=== PATIENT | female | born 1950 | race Caucasian/White ===

== ENCOUNTER 2017-05-31 05:01 | Inpatient (IN) ==
[2017-05-31] MEDS ORDERED: ONDANSETRON 4 MG/2 ML VIAL IV STA ×2 (05:34→06:59)
[2017-05-31] MEDS ORDERED: SODIUM CHLORIDE 0.9% 1,000 ML IV STA (05:34)
[2017-05-31] MEDS ORDERED: MORPHINE 2 MG/1 ML SYRINGE IV STA (05:35)
[2017-05-31] MEDS ORDERED: ONDANSETRON 4 MG/2 ML VIAL ONE ×2 (05:43→07:02)
[2017-05-31] MEDS ORDERED: MORPHINE 10 MG/1 ML VIAL ONE (05:44)
[2017-05-31] MEDS ORDERED: PANTOPRAZOLE 40 MG VIAL IV STA (06:09)
[2017-05-31 06:26] LABS: Basophils % 0.6 % (0.0-0.8); Eosinophils # 0.1 10*3/uL (0.0-0.87); Eosinophils % 2.3 % (0.00-10.9); Hematocrit 26.5 VOL% (35.7-47.0); Hemoglobin 9.2 GM/DL (12.0-16.0); Immature Granulocytes % 0.6 %; Immature Granulocytes Absolute 0.02 #; Lymphocytes % 27.6 % (21.3-54.2); Mean Corpuscular HGB Conc 34.7 GM/DL (32-36); Mean Corpuscular Hemoglobin 30 PG (27-34); Mean Corpuscular Volume 86.6 FL (87-102); Mean Platelet Volume 10.4 FL (9.6-12.0); Monocytes # 0.3 10*3/uL (0.11-0.8); Monocytes % 8.3 % (1.7-12.7); Neutrophils # 2.1 10*3/uL (1.4-7.4); Neutrophils % 60.6 % (38.7-73.9); Platelet Count 80 T/CUMM (130-400); Red Blood Count 3.06 MC/CUMM (3.8-5.5); Red Cell Distribution Width 14.6 % (9.3-17.3); White Blood Count 3.5 T/CUMM (4-12)
[2017-05-31] MEDS ORDERED: PANTOPRAZOLE 40 MG VIAL IV ONE (06:28)
[2017-05-31 06:36] LABS: INR 1.3; PT Patient Result 13.3 SECS
[2017-05-31 06:44] LABS: Albumin 3.2 G/DL (3.4-5.0); Bilirubin,Total 2.8 MG/DL (0.2-1.0); Calcium 8.2 MG/DL (8.5-10.1); Osmolality,Calculated 292.8 MOS/KG (273-304); Potassium 3.2 MMOL/L (3.5-5.1); Total Protein 5.4 G/DL (6.4-8.3); Troponin I Only 0.016 NG/ML (0.00-0.045)
[2017-05-31 08:11] LABS: Hypochromasia 1+; Ovalocytes Slight; Platelet Estimate Decreased
[2017-05-31] MEDS: POTASSIUM CHLORIDE 20 MEQ TABLET PO PRN ×4 (11:00→17:23)
[2017-05-31] MEDS: PANTOPRAZOLE 40 MG VIAL IV SCH (11:06)
[2017-05-31] MEDS: SODIUM CHLORIDE 0.9% 1,000 ML IV SCH (11:40)
[2017-06-01 05:58] LABS: Basophils % 0.6 % (0.0-0.8); Eosinophils # 0.1 10*3/uL (0.0-0.87); Eosinophils % 3.9 % (0.00-10.9); Hematocrit 21.7 VOL% (35.7-47.0); Hemoglobin 7.2 GM/DL (12.0-16.0); Immature Granulocytes % 0.6 %; Immature Granulocytes Absolute 0.01 #; Lymphocytes # 0.5 10*3/uL (1.4-4.0); Mean Corpuscular HGB Conc 33.2 GM/DL (32-36); Mean Corpuscular Hemoglobin 30 PG (27-34); Mean Platelet Volume 10.7 FL (9.6-12.0); Monocytes # 0.1 10*3/uL (0.11-0.8); Monocytes % 7.8 % (1.7-12.7); Neutrophils % 57.1 % (38.7-73.9); Red Blood Count 2.41 MC/CUMM (3.8-5.5); Red Cell Distribution Width 14.7 % (9.3-17.3); White Blood Count 1.8 T/CUMM (4-12)
[2017-06-01 06:09] LABS: Platelet Count 64 T/CUMM (130-400)
[2017-06-01 06:21] LABS: Microcytosis 1+; Ovalocytes Slight; Platelet Estimate Decreased
[2017-06-01 06:22] LABS: Hypochromasia 1+
[2017-06-01] MEDS: SODIUM CHLORIDE 0.9% 1,000 ML IV SCH (07:05)
[2017-06-01] MEDS ORDERED: SODIUM CHLORIDE 0.9% 1,000 ML IV PRN (07:18)
[2017-06-01] MEDS ORDERED: POTASSIUM CHLORIDE RIDER 10 MEQ in PREMIX 1 EACH IV PRN (07:19)
[2017-06-01] MEDS: PANTOPRAZOLE 40 MG VIAL IV SCH (08:49)
[2017-06-01] MEDS: METOPROLOL SUCCINATE XL 50 MG TABLET PO SCH (08:50)
[2017-06-01] MEDS ORDERED: amLODIPine 10 MG TABLET PO SCH (09:00)
[2017-06-01] MEDS ORDERED: METOPROLOL SUCCINATE XL 25 MG TABLET PO SCH (09:00)
[2017-06-01] MEDS ORDERED: LIDOCAINE 2% 5 ML VIAL ONE (10:33)
[2017-06-01] MEDS ORDERED: PROPOFOL 200 MG/20 ML VIAL IV ONE (10:33)
[2017-06-01] MEDS ORDERED: BISACODYL 5 MG TABLET PO ONE (12:00)
[2017-06-01 15:42] LABS: Hemoglobin 9.2 GM/DL (12.0-16.0)
[2017-06-01] MEDS: POTASSIUM CHLORIDE 20 MEQ TABLET PO PRN ×4 (16:00→20:59)
[2017-06-01] MEDS ORDERED: POLYETHYLENE GLYCOL POWDER 255 GM BOTTLE PO ONE (18:00)
[2017-06-02] MEDS: SODIUM CHLORIDE 0.9% 1,000 ML IV SCH ×2 (00:01→20:30)
[2017-06-02 06:54] LABS: Basophils % 0.6 % (0.0-0.8); Eosinophils % 2.5 % (0.00-10.9); Hematocrit 25.8 VOL% (35.7-47.0); Hemoglobin 8.5 GM/DL (12.0-16.0); Immature Granulocytes % 0.6 %; Immature Granulocytes Absolute 0.01 #; Lymphocytes # 0.5 10*3/uL (1.4-4.0); Lymphocytes % 29.8 % (21.3-54.2); Mean Corpuscular HGB Conc 32.9 GM/DL (32-36); Mean Corpuscular Hemoglobin 30 PG (27-34); Mean Corpuscular Volume 90.8 FL (87-102); Mean Platelet Volume 10.5 FL (9.6-12.0); Monocytes # 0.2 10*3/uL (0.11-0.8); Monocytes % 9.9 % (1.7-12.7); Neutrophils # 0.9 10*3/uL (1.4-7.4); Neutrophils % 56.6 % (38.7-73.9); Platelet Count 58 T/CUMM (130-400); Red Blood Count 2.84 MC/CUMM (3.8-5.5); Red Cell Distribution Width 15.4 % (9.3-17.3); White Blood Count 1.6 T/CUMM (4-12)
[2017-06-02 07:20] LABS: Eosinophils 6 % (0-10); Hypochromasia 1+; Lymphocytes 25 % (20-55); Microcytosis Slight; Ovalocytes Slight; Platelet Estimate Decreased; Segmented Neutrophils 62 % (50-85); Total Cells Counted 100
[2017-06-02 07:26] LABS: Calcium 7.9 MG/DL (8.5-10.1); Potassium 4.1 MMOL/L (3.5-5.1)
[2017-06-02] MEDS ORDERED: LIDOCAINE 2% 5 ML VIAL ONE (10:18)
[2017-06-02] MEDS ORDERED: PROPOFOL 200 MG/20 ML VIAL IV ONE (10:18)
[2017-06-02] MEDS: METOPROLOL SUCCINATE XL 50 MG TABLET PO SCH (13:33)
[2017-06-02] MEDS: PANTOPRAZOLE 40 MG VIAL IV SCH (13:34)
[2017-06-02 14:14] LABS: Hematocrit 29.7 VOL% (35.7-47.0); Hemoglobin 9.6 GM/DL (12.0-16.0)
[2017-06-03 09:17] LABS: Basophils % 0.6 % (0.0-0.8); Eosinophils # 0.1 10*3/uL (0.0-0.87); Eosinophils % 1.9 % (0.00-10.9); Hematocrit 29.1 VOL% (35.7-47.0); Hemoglobin 9.7 GM/DL (12.0-16.0); Immature Granulocytes % 0.6 %; Immature Granulocytes Absolute 0.02 #; Lymphocytes # 0.6 10*3/uL (1.4-4.0); Lymphocytes % 15.5 % (21.3-54.2); Mean Corpuscular HGB Conc 33.3 GM/DL (32-36); Mean Corpuscular Hemoglobin 30 PG (27-34); Mean Corpuscular Volume 88.7 FL (87-102); Mean Platelet Volume 10.9 FL (9.6-12.0); Monocytes # 0.4 10*3/uL (0.11-0.8); Monocytes % 9.7 % (1.7-12.7); Neutrophils # 2.6 10*3/uL (1.4-7.4); Neutrophils % 71.7 % (38.7-73.9); Platelet Count 72 T/CUMM (130-400); Red Blood Count 3.28 MC/CUMM (3.8-5.5)
[2017-06-03 09:19] LABS: White Blood Count 3.6 T/CUMM (4-12)
[2017-06-03] MEDS: METOPROLOL SUCCINATE XL 50 MG TABLET PO SCH (09:32)
[2017-06-03] MEDS: PANTOPRAZOLE 40 MG VIAL IV SCH (09:32)
[2017-06-03 10:06] LABS: Hypochromasia 1+; Ovalocytes Slight; Platelet Estimate Decreased
[2017-06-03 10:07] LABS: Giant Platelets Few; Microcytosis Slight
[2017-06-03 11:57] VITALS: BP 141/75
== END 2017-06-03 13:30 | disposition home or self-care (01) | DRG 378 ==
LOC: N.ED 05:01 → SUATTDRO 07:51 → N.EDINP 07:51 → N.5E 09:56
PROVIDERS: ATTEND Internal Medicine

== ENCOUNTER 2017-07-07 00:26 | Inpatient (IN) ==
[2017-07-07 02:58] LABS: Hematocrit 30.2 VOL% (35.7-47.0); Hemoglobin 9.4 GM/DL (12.0-16.0); Lymphocytes # 0.2 10*3/uL (1.4-4.0); Lymphocytes % 19.8 % (21.3-54.2); Mean Corpuscular HGB Conc 31.1 GM/DL (32-36); Mean Corpuscular Hemoglobin 26 PG (27-34); Mean Platelet Volume 11.1 FL (9.6-12.0); Monocytes # 0.1 10*3/uL (0.11-0.8); Monocytes % 12.9 % (1.7-12.7); Neutrophils # 0.7 10*3/uL (1.4-7.4); Neutrophils % 66.3 % (38.7-73.9); Platelet Count 58 T/CUMM (130-400); Red Blood Count 3.64 MC/CUMM (3.8-5.5); Red Cell Distribution Width 15.3 % (9.3-17.3)
[2017-07-07 03:05] LABS: INR 1.4; PT Patient Result 14.4 SECS
[2017-07-07 03:20] LABS: Albumin 3.4 G/DL (3.4-5.0); Bilirubin,Total 1.5 MG/DL (0.2-1.0); Calcium 8.2 MG/DL (8.5-10.1); Osmolality,Calculated 280.3 MOS/KG (273-304); Potassium 3.8 MMOL/L (3.5-5.1); Total Protein 5.7 G/DL (6.4-8.3)
[2017-07-07 03:23] LABS: Band Neutrophils 7 % (0-10); Lymphocytes 13 % (20-55); Platelet Estimate Decreased; Segmented Neutrophils 75 % (50-85); Total Cells Counted 100
[2017-07-07] MEDS ORDERED: MORPHINE 2 MG/1 ML SYRINGE IV PRN (04:55)
[2017-07-07] MEDS ORDERED: ONDANSETRON 4 MG/2 ML VIAL IV PRN (04:55)
[2017-07-07] MEDS ORDERED: BENZONATATE 100 MG CAPSULE PO PRN (04:55)
[2017-07-07] MEDS: SODIUM CHLORIDE 0.9% 1,000 ML IV SCH (06:24)
[2017-07-07] MEDS ORDERED: INFLUENZA VIRUS VACCINE 0.5 ML SYRINGE IM ONE (07:00)
[2017-07-07] MEDS ORDERED: PANTOPRAZOLE 40 MG TABLET PO SCH (09:00)
[2017-07-07] MEDS: SPIRONOLACTONE 50 MG TABLET PO SCH ×2 (09:07→20:55)
[2017-07-07] MEDS: TAMSULOSIN 0.4 MG CAPSULE PO SCH (09:08)
[2017-07-07] MEDS: LACTULOSE 20 GM/30 ML UDCUP PO SCH ×2 (09:08→20:55)
[2017-07-07] MEDS: METOPROLOL SUCCINATE XL 50 MG TABLET PO SCH (09:08)
[2017-07-07 09:40] LABS: Apearance,Urine CLEAR (Clear); Bilirubin,Urine Negative (Negative); Blood, Urine Negative (Negative); Glucose,Urine (UA) Negative (Negative); Ketones,Urine 20 mg/dL (Negative); Mucus,Urine Occasional /LPF (Occasional); Nitrite,Urine Negative (Negative); Protein,Urine 30 MG/DL; RBC,Urine 1 /HPF (0-4); Squamous Epithelial Cell,Urine Occasional /HPF (0-10); Urine Color Yellow (Yellow); Urine Specific Gravity 1.019 (1.001-1.035); Urine Urobilinogen < 2.0 EU/DL (0.2-1.0); WBC,Urine 1 /HPF (0-6)
[2017-07-07] MEDS: SUCRALFATE 1 GM/10 ML UDCUP PO SCH ×3 (11:39→20:55)
[2017-07-07] MEDS: FLUTICASONE 50 MCG NASAL SPRAY 16 GM BOTTLE BOTH NARES SCH (13:46)
[2017-07-07] MEDS: traMADol 50 MG TABLET PO PRN (15:31)
[2017-07-07] MEDS: PIPERACILLIN/TAZOBACTAM 3,375 MG in SODIUM CHLORIDE 0.9% 100 ML IV SCH (17:04)
[2017-07-08] MEDS: PIPERACILLIN/TAZOBACTAM 3,375 MG in SODIUM CHLORIDE 0.9% 100 ML IV SCH ×3 (00:46→17:08)
[2017-07-08] MEDS: traMADol 50 MG TABLET PO PRN (03:36)
[2017-07-08] MEDS: SODIUM CHLORIDE 0.9% 1,000 ML IV SCH (03:40)
[2017-07-08 05:29] LABS: Hematocrit 27.2 VOL% (35.7-47.0); Hemoglobin 8.3 GM/DL (12.0-16.0); Lymphocytes # 0.2 10*3/uL (1.4-4.0); Mean Corpuscular HGB Conc 30.5 GM/DL (32-36); Mean Corpuscular Hemoglobin 25 PG (27-34); Mean Corpuscular Volume 82.9 FL (87-102); Mean Platelet Volume 12.2 FL (9.6-12.0); Monocytes # 0.2 10*3/uL (0.11-0.8); Monocytes % 20.8 % (1.7-12.7); Neutrophils # 0.5 10*3/uL (1.4-7.4); Neutrophils % 55.2 % (38.7-73.9); Platelet Count 51 T/CUMM (130-400); Red Blood Count 3.28 MC/CUMM (3.8-5.5); Red Cell Distribution Width 15.4 % (9.3-17.3)
[2017-07-08 05:54] LABS: Band Neutrophils 1 % (0-10); Eosinophils 1 % (0-10); Giant Platelets Few; Hypochromasia 1+; Lymphocytes 31 % (20-55); Microcytosis Slight; Ovalocytes Slight; Platelet Estimate Decreased; Segmented Neutrophils 50 % (50-85); Total Cells Counted 100
[2017-07-08 06:01] LABS: Folate 6.4 NG/ML (5.4-24.0); Vitamin B12 1051 PG/ML (211-911)
[2017-07-08 06:04] LABS: Bilirubin,Total 1.1 MG/DL (0.2-1.0); Calcium 7.9 MG/DL (8.5-10.1); Lactic Acid 0.9 MMOL/L (0.4-2.0); Osmolality,Calculated 279.3 MOS/KG (273-304); Potassium 3.5 MMOL/L (3.5-5.1)
[2017-07-08 09:30] LABS: Hemoglobin A1 (Alkaline) 97.4 % (96.5-98.5); Hemoglobin A2 (Alkaline) 2.6 % (1.5-3.5)
[2017-07-08] MEDS: LACTULOSE 20 GM/30 ML UDCUP PO SCH ×2 (09:38→20:46)
[2017-07-08] MEDS: SUCRALFATE 1 GM/10 ML UDCUP PO SCH ×4 (09:38→20:46)
[2017-07-08] MEDS: SPIRONOLACTONE 50 MG TABLET PO SCH ×2 (09:38→20:46)
[2017-07-08] MEDS: TAMSULOSIN 0.4 MG CAPSULE PO SCH (09:38)
[2017-07-08] MEDS: METOPROLOL SUCCINATE XL 50 MG TABLET PO SCH (09:38)
[2017-07-08] MEDS: FLUTICASONE 50 MCG NASAL SPRAY 16 GM BOTTLE BOTH NARES SCH (10:41)
[2017-07-08] MEDS: FOLIC ACID 1 MG TABLET PO SCH (11:31)
[2017-07-08 23:03] LABS: Sedimentation Rate-Westergren 7 MM/HR (0-30)
[2017-07-09] MEDS: PIPERACILLIN/TAZOBACTAM 3,375 MG in SODIUM CHLORIDE 0.9% 100 ML IV SCH (00:53)
[2017-07-09 06:10] LABS: Hepatitis A Ab IgM Quant 0.09 Index; Hepatitis A Ab IgM Result Negative (Negative); Hepatitis B Core IgM Quant 0.17 Index; Hepatitis B Core IgM Result Negative (Negative); Hepatitis B Surface Ag Quant < 0.10 Index; Hepatitis B Surface Ag Result Negative (Negative); Hepatitis C Virus Ab Quant 10.41 Index
[2017-07-09 07:00] LABS: Hepatitis C Virus Ab Result Positive (Negative)
[2017-07-09 08:09] LABS: Eosinophils % 1.2 % (0.00-10.9); Hematocrit 26.4 VOL% (35.7-47.0); Hemoglobin 8.1 GM/DL (12.0-16.0); Lymphocytes # 0.4 10*3/uL (1.4-4.0); Lymphocytes % 47.6 % (21.3-54.2); Mean Corpuscular HGB Conc 30.7 GM/DL (32-36); Mean Corpuscular Hemoglobin 26 PG (27-34); Mean Corpuscular Volume 83.8 FL (87-102); Mean Platelet Volume 12.6 FL (9.6-12.0); Monocytes # 0.2 10*3/uL (0.11-0.8); Neutrophils # 0.3 10*3/uL (1.4-7.4); Neutrophils % 32.2 % (38.7-73.9); Platelet Count 49 T/CUMM (130-400); Red Blood Count 3.15 MC/CUMM (3.8-5.5); Red Cell Distribution Width 15.7 % (9.3-17.3)
[2017-07-09 08:14] LABS: White Blood Count 0.8 T/CUMM (4-12)
[2017-07-09] MEDS ORDERED: IMMUNE GLOBULIN 10% 20 GM, IMMUNE GLOBULIN 10% 10 GM in PREMIX 1 EACH IV ONE (08:21)
[2017-07-09 08:36] LABS: Band Neutrophils 4 % (0-10); Hypochromasia 1+; Lymphocytes 40 % (20-55); Microcytosis 1+; Ovalocytes Slight; Platelet Estimate Decreased; Segmented Neutrophils 36 % (50-85); Total Cells Counted 100
[2017-07-09] MEDS: FOLIC ACID 1 MG TABLET PO SCH (09:09)
[2017-07-09] MEDS: TAMSULOSIN 0.4 MG CAPSULE PO SCH (09:09)
[2017-07-09] MEDS: SPIRONOLACTONE 50 MG TABLET PO SCH ×2 (09:10→20:49)
[2017-07-09] MEDS: METOPROLOL SUCCINATE XL 50 MG TABLET PO SCH (09:10)
[2017-07-09] MEDS: FLUTICASONE 50 MCG NASAL SPRAY 16 GM BOTTLE BOTH NARES SCH (09:11)
[2017-07-09] MEDS: SUCRALFATE 1 GM/10 ML UDCUP PO SCH ×4 (09:11→20:49)
[2017-07-09] MEDS: FILGRASTIM-SNDZ 300 MCG/0.5 ML SYRINGE SUBCUT SCH (09:11)
[2017-07-09] MEDS: LACTULOSE 20 GM/30 ML UDCUP PO SCH ×2 (09:11→20:49)
[2017-07-09] MEDS: SODIUM CHLORIDE 0.9% 1,000 ML IV SCH ×2 (18:06→19:05)
[2017-07-10] MEDS: traMADol 50 MG TABLET PO PRN (04:21)
[2017-07-10] MEDS: SPIRONOLACTONE 50 MG TABLET PO SCH ×2 (09:12→21:04)
[2017-07-10] MEDS: FOLIC ACID 1 MG TABLET PO SCH (09:12)
[2017-07-10] MEDS: SUCRALFATE 1 GM/10 ML UDCUP PO SCH ×4 (09:12→21:04)
[2017-07-10] MEDS: FILGRASTIM-SNDZ 300 MCG/0.5 ML SYRINGE SUBCUT SCH (09:12)
[2017-07-10] MEDS: METOPROLOL SUCCINATE XL 50 MG TABLET PO SCH (09:12)
[2017-07-10] MEDS: LACTULOSE 20 GM/30 ML UDCUP PO SCH ×2 (09:12→21:04)
[2017-07-10] MEDS: TAMSULOSIN 0.4 MG CAPSULE PO SCH (09:12)
[2017-07-10] MEDS: FLUTICASONE 50 MCG NASAL SPRAY 16 GM BOTTLE BOTH NARES SCH (09:13)
[2017-07-10 09:49] LABS: Albumin 2.9 G/DL (3.4-5.0); Bilirubin,Total 0.9 MG/DL (0.2-1.0); Calcium 7.9 MG/DL (8.5-10.1); Osmolality,Calculated 283.8 MOS/KG (273-304); Potassium 3.6 MMOL/L (3.5-5.1); Total Protein 6.1 G/DL (6.4-8.3)
[2017-07-10 10:20] LABS: Eosinophils % 0.8 % (0.00-10.9); Hematocrit 29.2 VOL% (35.7-47.0); Immature Granulocytes % 0.8 %; Immature Granulocytes Absolute 0.03 #; Lymphocytes # 0.6 10*3/uL (1.4-4.0); Lymphocytes % 14.1 % (21.3-54.2); Mean Corpuscular HGB Conc 31.8 GM/DL (32-36); Mean Corpuscular Hemoglobin 26 PG (27-34); Mean Platelet Volume 11.9 FL (9.6-12.0); Monocytes # 0.2 10*3/uL (0.11-0.8); Monocytes % 4.5 % (1.7-12.7); Neutrophils # 3.2 10*3/uL (1.4-7.4); Neutrophils % 79.8 % (38.7-73.9); Red Blood Count 3.56 MC/CUMM (3.8-5.5); Red Cell Distribution Width 15.8 % (9.3-17.3)
[2017-07-10 10:28] LABS: Hemoglobin 9.3 GM/DL (12.0-16.0); Platelet Count 47 T/CUMM (130-400)
[2017-07-10 10:43] LABS: Band Neutrophils 8 % (0-10); Giant Platelets Few; Hypochromasia 1+; Lymphocytes 10 % (20-55); Ovalocytes Slight; Platelet Estimate Decreased; Segmented Neutrophils 78 % (50-85); Total Cells Counted 100
[2017-07-10 10:44] LABS: Microcytosis 1+
[2017-07-10] MEDS: SODIUM CHLORIDE 0.9% 1,000 ML IV SCH (16:10)
[2017-07-11 05:41] LABS: Albumin 2.8 G/DL (3.4-5.0); Bilirubin,Total 0.9 MG/DL (0.2-1.0); Calcium 7.6 MG/DL (8.5-10.1); Osmolality,Calculated 287.6 MOS/KG (273-304); Potassium 3.5 MMOL/L (3.5-5.1); Total Protein 5.1 G/DL (6.4-8.3)
[2017-07-11 06:14] LABS: Basophils % 0.2 % (0.0-0.8); Eosinophils % 0.6 % (0.00-10.9); Hematocrit 27.4 VOL% (35.7-47.0); Hemoglobin 8.8 GM/DL (12.0-16.0); Immature Granulocytes % 8.1 %; Immature Granulocytes Absolute 0.41 #; Lymphocytes # 0.7 10*3/uL (1.4-4.0); Lymphocytes % 13.8 % (21.3-54.2); Mean Corpuscular HGB Conc 32.1 GM/DL (32-36); Mean Corpuscular Hemoglobin 26 PG (27-34); Mean Corpuscular Volume 81.5 FL (87-102); Mean Platelet Volume 11.8 FL (9.6-12.0); Monocytes # 0.3 10*3/uL (0.11-0.8); Monocytes % 5.9 % (1.7-12.7); Neutrophils # 3.6 10*3/uL (1.4-7.4); Neutrophils % 71.4 % (38.7-73.9); Platelet Count 42 T/CUMM (130-400); Red Blood Count 3.36 MC/CUMM (3.8-5.5); Red Cell Distribution Width 15.8 % (9.3-17.3); White Blood Count 5.1 T/CUMM (4-12)
[2017-07-11 06:15] LABS: Band Neutrophils 6 % (0-10); Giant Platelets Few; Hypochromasia 1+; Lymphocytes 15 % (20-55); Microcytosis Slight; Ovalocytes Slight; Platelet Estimate Decreased; Segmented Neutrophils 73 % (50-85); Total Cells Counted 100
[2017-07-11] MEDS: SUCRALFATE 1 GM/10 ML UDCUP PO SCH ×4 (09:18→20:23)
[2017-07-11] MEDS: SPIRONOLACTONE 50 MG TABLET PO SCH ×2 (09:19→20:23)
[2017-07-11] MEDS: LACTULOSE 20 GM/30 ML UDCUP PO SCH ×2 (09:19→20:23)
[2017-07-11] MEDS: FLUTICASONE 50 MCG NASAL SPRAY 16 GM BOTTLE BOTH NARES SCH (09:19)
[2017-07-11] MEDS: TAMSULOSIN 0.4 MG CAPSULE PO SCH (09:19)
[2017-07-11] MEDS: METOPROLOL SUCCINATE XL 50 MG TABLET PO SCH (09:20)
[2017-07-11] MEDS: FILGRASTIM-SNDZ 300 MCG/0.5 ML SYRINGE SUBCUT SCH (09:20)
[2017-07-11] MEDS: FOLIC ACID 1 MG TABLET PO SCH (09:22)
[2017-07-11] MEDS: SODIUM CHLORIDE 0.9% 1,000 ML IV SCH ×2 (11:14→16:41)
[2017-07-12 06:06] LABS: Basophils % 0.3 % (0.0-0.8); Eosinophils # 0.1 10*3/uL (0.0-0.87); Hematocrit 28.5 VOL% (35.7-47.0); Hemoglobin 9.1 GM/DL (12.0-16.0); Immature Granulocytes Absolute 0.12 #; Lymphocytes # 0.9 10*3/uL (1.4-4.0); Lymphocytes % 14.2 % (21.3-54.2); Mean Corpuscular HGB Conc 31.9 GM/DL (32-36); Mean Corpuscular Hemoglobin 26 PG (27-34); Mean Corpuscular Volume 81.2 FL (87-102); Monocytes # 0.5 10*3/uL (0.11-0.8); Monocytes % 7.9 % (1.7-12.7); NRBC # 0.02 10*3/uL; Neutrophils # 4.6 10*3/uL (1.4-7.4); Neutrophils % 74.6 % (38.7-73.9); Platelet Count 42 T/CUMM (130-400); Red Blood Count 3.51 MC/CUMM (3.8-5.5); Red Cell Distribution Width 15.9 % (9.3-17.3); White Blood Count 6.1 T/CUMM (4-12)
[2017-07-12 06:21] LABS: Albumin 2.9 G/DL (3.4-5.0); Bilirubin,Total 1.3 MG/DL (0.2-1.0); Calcium 7.6 MG/DL (8.5-10.1); Mean Platelet Volume 13.2 FL (9.6-12.0); Osmolality,Calculated 283.7 MOS/KG (273-304); Potassium 3.7 MMOL/L (3.5-5.1); Total Protein 5.2 G/DL (6.4-8.3)
[2017-07-12 07:03] LABS: Atypical Lymphocytes Few; Band Neutrophils 5 % (0-10); Eosinophils 2 % (0-10); Giant Platelets Few; Hypochromasia 1+; Lymphocytes 14 % (20-55); Microcytosis Slight; Nucleated Red Blood Cells 1 (0-5); Ovalocytes Slight; Platelet Estimate Decreased; Segmented Neutrophils 70 % (50-85); Total Cells Counted 100
[2017-07-12] MEDS: SUCRALFATE 1 GM/10 ML UDCUP PO SCH ×2 (08:20→11:12)
[2017-07-12] MEDS: FOLIC ACID 1 MG TABLET PO SCH (08:20)
[2017-07-12] MEDS: LACTULOSE 20 GM/30 ML UDCUP PO SCH (08:20)
[2017-07-12] MEDS: TAMSULOSIN 0.4 MG CAPSULE PO SCH (08:21)
[2017-07-12] MEDS: SPIRONOLACTONE 50 MG TABLET PO SCH (08:21)
[2017-07-12] MEDS: METOPROLOL SUCCINATE XL 50 MG TABLET PO SCH (08:21)
[2017-07-12] MEDS: FLUTICASONE 50 MCG NASAL SPRAY 16 GM BOTTLE BOTH NARES SCH (08:39)
[2017-07-12] MEDS: SODIUM CHLORIDE 0.9% 1,000 ML IV SCH (12:47)
[2017-07-12 12:54] VITALS: BP 165/70
== END 2017-07-12 14:40 | disposition home or self-care (01) | DRG 810 ==
LOC: N.EDINP 00:26 → N.ED 00:26 → SUATTDRO 04:12 → N.4E 04:40
PROVIDERS: ADMIT Family Medicine; ATTEND Hospitalist

== ENCOUNTER 2021-02-02 21:24 | Inpatient (IN) ==
[2021-02-02] MEDS ORDERED: ONDANSETRON 4 MG/2 ML VIAL IV STA (23:50)
[2021-02-02 23:53] LABS: Basophils % 0.2 % (0.0-0.8); Eosinophils % 0.6 % (0.00-10.9); Hematocrit 31.1 VOL% (35.7-47.0); Hemoglobin 9.4 GM/DL (12.0-16.0); Immature Granulocytes % 0.4 %; Immature Granulocytes Absolute 0.02 #; Lymphocytes # 0.3 10*3/uL (1.4-4.0); Lymphocytes % 5.8 % (21.3-54.2); Mean Corpuscular HGB Conc 30.2 GM/DL (32-36); Mean Corpuscular Volume 77.2 FL (87-102); Mean Platelet Volume 11.3 FL (9.6-12.0); Red Blood Count 4.03 MC/CUMM (3.8-5.5); Red Cell Distribution Width 17.2 % (9.3-17.3)
[2021-02-02 23:54] LABS: Platelet Count 56 T/CUMM (130-400)
[2021-02-02] MEDS ORDERED: VANCOMYCIN INJ 1,250 MG in SODIUM CHLORIDE 0.9% 250 ML IV ONE (23:56)
[2021-02-03 00:15] LABS: Blood Urea Nitrogen 13 MG/DL (7-18); Calcium 8.4 MG/DL (8.5-10.1); Carbon Dioxide 25 MMOL/L (21-32); Estimated Glom Filtration Rate 65 ML/MIN; Glucose 105 MG/DL (74-106); Potassium 3.7 MMOL/L (3.5-5.1); Sodium 143 MMOL/L (136-145)
[2021-02-03] MEDS ORDERED: NICOTINE 21 MG/24 HR PATCH TRANSDERM PRN (00:40)
[2021-02-03] MEDS ORDERED: guaiFENesin/DM ER 600-30 MG TABLET PO PRN (00:40)
[2021-02-03] MEDS ORDERED: ONDANSETRON 4 MG/2 ML VIAL IV PRN (00:40)
[2021-02-03] MEDS ORDERED: DOCUSATE SODIUM 100 MG CAPSULE PO PRN (00:40)
[2021-02-03] MEDS ORDERED: diphenhydrAMINE CAP 25 MG CAPSULE PO PRN (00:40)
[2021-02-03] MEDS ORDERED: hydrALAZINE 20 MG/1 ML VIAL IV PRN (00:40)
[2021-02-03] MEDS ORDERED: GLUCAGON 1 MG VIAL IM PRN (00:40)
[2021-02-03] MEDS ORDERED: DEXTROSE 50% 25 GM/50 ML VIAL IV PRN (00:40)
[2021-02-03 01:04] LABS: Band Neutrophils 2 % (0-10); Eosinophils 1 % (0-10); Lymphocytes 5 % (20-55); Segmented Neutrophils 86 % (50-85); Total Cells Counted 100
[2021-02-03 01:05] LABS: Hypochromasia 1+; Microcytosis 2+; Platelet Estimate Decreased
[2021-02-03 01:06] LABS: Anisocytosis 2+; Reactive Lymphocytes Few
[2021-02-03 01:50] LABS: Sedimentation Rate-Westergren 4 MM/HR (0-30)
[2021-02-03] MEDS: ACETAMINOPHEN 325 MG TABLET PO PRN ×2 (02:40→09:11)
[2021-02-03] MEDS: CLINDAMYCIN INJ 600 MG/50 ML PREMIX IV SCH ×4 (03:25→19:16)
[2021-02-03] MEDS: ENOXAPARIN 40 MG/0.4 ML SYRINGE SUBCUT SCH (10:10)
[2021-02-03] MEDS ORDERED: FUROSEMIDE 20 MG TABLET PO SCH (10:30)
[2021-02-03] MEDS: METOPROLOL SUCCINATE XL 50 MG TABLET PO SCH (10:30)
[2021-02-03] MEDS ORDERED: ERGOCALCIFEROL 50,000 UNIT CAPSULE PO SCH (10:30)
[2021-02-03] MEDS: FOLIC ACID 1 MG TABLET PO SCH (12:04)
[2021-02-03] MEDS: PANTOPRAZOLE 40 MG TABLET PO SCH (12:04)
[2021-02-03] MEDS: ASPIRIN 325 MG TABLET PO SCH (12:04)
[2021-02-03] MEDS ORDERED: LACTULOSE 20 GM/30 ML UDCUP PO ONE (14:05)
[2021-02-03] MEDS: VANCOMYCIN INJ 1,250 MG in SODIUM CHLORIDE 0.9% 250 ML IV SCH (19:44)
[2021-02-03] MEDS: RIFAXIMIN 550 MG TABLET PO SCH (20:43)
[2021-02-03] MEDS: LACTULOSE 20 GM/30 ML UDCUP PO SCH (20:43)
[2021-02-03] MEDS ORDERED: RIFAXIMIN 550 MG TABLET PO SCH (21:00)
[2021-02-04] MEDS: CLINDAMYCIN INJ 600 MG/50 ML PREMIX IV SCH ×3 (01:34→17:15)
[2021-02-04] MEDS: ACETAMINOPHEN 325 MG TABLET PO PRN ×2 (04:40→17:18)
[2021-02-04 07:17] LABS: Albumin 2.6 G/DL (3.4-5.0); Bilirubin,Total 2.7 MG/DL (0.20-1.00); Calcium 7.7 MG/DL (8.5-10.1); Potassium 3.2 MMOL/L (3.5-5.1); Total Protein 5.4 G/DL (6.4-8.2)
[2021-02-04] MEDS ORDERED: POTASSIUM CHLORIDE 20 MEQ TABLET PO ONE (07:41)
[2021-02-04 07:42] LABS: Eosinophils % 0.6 % (0.00-10.9); Hematocrit 26.8 VOL% (35.7-47.0); Hemoglobin 8.1 GM/DL (12.0-16.0); Immature Granulocytes % 0.3 %; Immature Granulocytes Absolute 0.01 #; Lymphocytes # 0.5 10*3/uL (1.4-4.0); Lymphocytes % 13.2 % (21.3-54.2); Mean Corpuscular HGB Conc 30.2 GM/DL (32-36); Mean Corpuscular Volume 77.5 FL (87-102); Mean Platelet Volume 11.4 FL (9.6-12.0); Neutrophils % 77.9 % (38.7-73.9); Red Blood Count 3.46 MC/CUMM (3.8-5.5); Red Cell Distribution Width 17.5 % (9.3-17.3); White Blood Count 3.5 T/CUMM (4-12)
[2021-02-04 07:45] LABS: Platelet Count 44 T/CUMM (130-400)
[2021-02-04 08:08] LABS: Hypochromasia 1+; Lymphocytes 13 % (20-55); Microcytosis 2+; Ovalocytes Slight; Segmented Neutrophils 83 % (50-85); Total Cells Counted 100
[2021-02-04 08:09] LABS: Platelet Estimate Decreased
[2021-02-04] MEDS: FOLIC ACID 1 MG TABLET PO SCH (09:35)
[2021-02-04] MEDS: ENOXAPARIN 40 MG/0.4 ML SYRINGE SUBCUT SCH (09:35)
[2021-02-04] MEDS: RIFAXIMIN 550 MG TABLET PO SCH ×2 (09:35→20:44)
[2021-02-04] MEDS: PANTOPRAZOLE 40 MG TABLET PO SCH (09:35)
[2021-02-04] MEDS: ASPIRIN 325 MG TABLET PO SCH (09:35)
[2021-02-04] MEDS: LACTULOSE 20 GM/30 ML UDCUP PO SCH ×2 (09:35→20:44)
[2021-02-04] MEDS: METOPROLOL SUCCINATE XL 50 MG TABLET PO SCH (09:35)
[2021-02-04] MEDS: VANCOMYCIN INJ 1,250 MG in SODIUM CHLORIDE 0.9% 250 ML IV SCH (11:15)
[2021-02-04] MEDS ORDERED: POTASSIUM CHLORIDE RIDER 20 MEQ/100 ML PREMIX IV PRN (16:43)
[2021-02-04] MEDS ORDERED: MAGNESIUM SULF RIDER 2 GM/50 ML PREMIX IV ONE (16:44)
[2021-02-04] MEDS ORDERED: POTASSIUM CHLORIDE RIDER 10 MEQ/100 ML PREMIX IV PRN (17:14)
[2021-02-05] MEDS: CLINDAMYCIN INJ 600 MG/50 ML PREMIX IV SCH ×3 (01:59→17:18)
[2021-02-05 05:49] LABS: Basophils % 0.5 % (0.0-0.8); Eosinophils # 0.1 10*3/uL (0.0-0.87); Eosinophils % 1.6 % (0.00-10.9); Hematocrit 30.8 VOL% (35.7-47.0); Hemoglobin 9.1 GM/DL (12.0-16.0); Immature Granulocytes % 0.3 %; Immature Granulocytes Absolute 0.01 #; Lymphocytes # 0.7 10*3/uL (1.4-4.0); Mean Corpuscular HGB Conc 29.5 GM/DL (32-36); Mean Corpuscular Volume 79.2 FL (87-102); Neutrophils % 70.6 % (38.7-73.9); Platelet Count 62 T/CUMM (130-400); Red Blood Count 3.89 MC/CUMM (3.8-5.5); Red Cell Distribution Width 17.9 % (9.3-17.3); White Blood Count 3.6 T/CUMM (4-12)
[2021-02-05] MEDS: VANCOMYCIN INJ 1,250 MG in SODIUM CHLORIDE 0.9% 250 ML IV SCH ×2 (05:50→23:06)
[2021-02-05 06:07] LABS: Calcium 8.2 MG/DL (8.5-10.1); Osmolality,Calculated 283.1 MOS/KG (273-304); Potassium 3.5 MMOL/L (3.5-5.1)
[2021-02-05 06:12] LABS: Eosinophils 1 % (0-10); Lymphocytes 18 % (20-55); Segmented Neutrophils 75 % (50-85); Total Cells Counted 100
[2021-02-05 06:13] LABS: Bilirubin,Total 1.7 MG/DL (0.20-1.00); Calcium 8.3 MG/DL (8.5-10.1); Hypochromasia 1+; Microcytosis 1+; Ovalocytes Slight; Platelet Estimate Decreased; Potassium 3.5 MMOL/L (3.5-5.1); Total Protein 6.2 G/DL (6.4-8.2)
[2021-02-05] MEDS: LACTULOSE 20 GM/30 ML UDCUP PO SCH ×2 (08:32→20:25)
[2021-02-05] MEDS: FOLIC ACID 1 MG TABLET PO SCH (08:33)
[2021-02-05] MEDS: PANTOPRAZOLE 40 MG TABLET PO SCH (08:33)
[2021-02-05] MEDS: METOPROLOL SUCCINATE XL 50 MG TABLET PO SCH (08:33)
[2021-02-05] MEDS: ASPIRIN 325 MG TABLET PO SCH (08:33)
[2021-02-05] MEDS: ENOXAPARIN 40 MG/0.4 ML SYRINGE SUBCUT SCH (08:33)
[2021-02-05] MEDS: RIFAXIMIN 550 MG TABLET PO SCH ×2 (08:33→20:25)
[2021-02-05] MEDS ORDERED: POTASSIUM CHLORIDE 20 MEQ TABLET PO ONE (13:30)
[2021-02-06] MEDS: CLINDAMYCIN INJ 600 MG/50 ML PREMIX IV SCH ×2 (02:24→10:13)
[2021-02-06 08:26] LABS: Calcium 7.7 MG/DL (8.5-10.1); Osmolality,Calculated 290.6 MOS/KG (273-304); Potassium 3.8 MMOL/L (3.5-5.1)
[2021-02-06 09:29] LABS: Basophils % 0.6 % (0.0-0.8); Eosinophils % 1.9 % (0.00-10.9); Hematocrit 27.2 VOL% (35.7-47.0); Hemoglobin 8.2 GM/DL (12.0-16.0); Immature Granulocytes % 0.6 %; Immature Granulocytes Absolute 0.01 #; Lymphocytes # 0.3 10*3/uL (1.4-4.0); Lymphocytes % 21.1 % (21.3-54.2); Mean Corpuscular HGB Conc 30.1 GM/DL (32-36); Mean Corpuscular Volume 78.6 FL (87-102); Mean Platelet Volume 10.9 FL (9.6-12.0); Monocytes % 11.2 % (1.7-12.7); Neutrophils % 64.6 % (38.7-73.9); Platelet Count 55 T/CUMM (130-400); Red Blood Count 3.46 MC/CUMM (3.8-5.5); Red Cell Distribution Width 17.8 % (9.3-17.3); White Blood Count 1.6 T/CUMM (4-12)
[2021-02-06 09:48] LABS: Band Neutrophils 3 % (0-10); Eosinophils 2 % (0-10); Hypochromasia 1+; Lymphocytes 15 % (20-55); Microcytosis 1+; Segmented Neutrophils 71 % (50-85); Total Cells Counted 100
[2021-02-06 09:49] LABS: Ovalocytes Slight; Platelet Estimate Decreased
[2021-02-06] MEDS: ASPIRIN 325 MG TABLET PO SCH (10:12)
[2021-02-06] MEDS: RIFAXIMIN 550 MG TABLET PO SCH (10:12)
[2021-02-06] MEDS: LACTULOSE 20 GM/30 ML UDCUP PO SCH (10:13)
[2021-02-06] MEDS: PANTOPRAZOLE 40 MG TABLET PO SCH (10:13)
[2021-02-06] MEDS: ENOXAPARIN 40 MG/0.4 ML SYRINGE SUBCUT SCH (10:13)
[2021-02-06] MEDS: METOPROLOL SUCCINATE XL 50 MG TABLET PO SCH (10:13)
[2021-02-06] MEDS: FOLIC ACID 1 MG TABLET PO SCH (10:13)
[2021-02-06 11:12] VITALS: BP 128/53
[2021-02-07] MEDS ORDERED: ERGOCALCIFEROL 50,000 UNIT CAPSULE PO SCH (09:00)
== END 2021-02-06 14:25 | disposition home or self-care (01) | DRG 602 ==
LOC: N.EDINP 21:24 → N.ED 21:24 → N.3E 02-03 02:03 → SUATTDRO 02-04 13:34
PROVIDERS: ADMIT Internal Medicine; ATTEND Internal Medicine